=== PATIENT | female | born 1975 | race American Indian/Alaskan Native ===

== ENCOUNTER 2018-02-03 12:49 | Emergency (ER) | payer MEDICAID ==
[2018-02-03 13:08] VITALS: BP 118/77
[2018-02-03] MEDS ORDERED: ASPIRIN PO ONE (13:08)
[2018-02-03 13:58] LABS: Basophils % (Auto) 0.4 % (0.0-1.8); Eosinophils # (Auto) 0.1 K/mm3 (0.0-0.4); Eosinophils % (Auto) 0.8 % (0.0-4.3); Hematocrit 42.6 % (30.3-42.9); Lymphocytes # (Auto) 3.9 K/mm3 (1.2-5.4); Lymphocytes % (Auto) 42.1 % (13.4-35.0); Mean Corpuscular HGB Conc 35 % (30-34); Mean Corpuscular Hemoglobin 33 pg (28-32); Mean Corpuscular Volume 94 fl (79-97); Monocytes # (Auto) 0.9 K/mm3 (0.0-0.8); Monocytes % (Auto) 9.9 % (0.0-7.3); Platelet Count 309 K/mm3 (140-440); Red Blood Count 4.51 M/mm3 (3.65-5.03); Red Cell Distribution Width 13.9 % (13.2-15.2)
[2018-02-03 14:37] LABS: BUN/Creatinine Ratio 10; Blood Urea Nitrogen 7 mg/dL (7-17); Calcium 9.9 mg/dL (8.4-10.2); Hemolysis Index 70
--- NOTE | 2018-02-03 14:59 | Emergency Department Report ---
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 Patient presented to the ER complaining of left-sided chest pain, pressure in nature associated with shortness of breath. Patient stated that she just came back from [facility] for 7 days. She denied any fever, nausea or vomiting. MD Complaint: chest pain -: days(s) Onset: during rest Pain Location: left chest Pain Radiation: none Severity: moderate Severity scale (0 -10): 5 Quality: tightness Consistency: intermittent - Related Data Home Medications Medication Instructions Recorded Confirmed Last Taken Chickweed 770 mg PO BID 01/31/14 02/06/14 02/04/14 06:30 770mg Cholecalciferol (Vitamin D3) 2,000 1000units PO DAILY 01/31/14 02/06/14 11:00 [D3-2000] 2000unit Gabapentin [Neurontin] 400 mg PO DAILY 01/31/14 02/06/14 02/04/14 22:30 400mg Magnesium 800 mg PO DAILY 01/31/14 02/06/14 02/01/14 22:00 800mg Naproxen Sodium [Aleve] 220 mg PO PRN PRN 01/31/14 02/06/14 02/01/14 22:30 220mg Tummeric 2,000 mg PO DAILY 01/31/14 02/06/14 02/01/14 09:00 2000mg Vitamin B Complex [B Complex] 1 tab PO DAILY 01/31/14 02/06/14 02/03/14 07:30 1tab Vitamin E 400 unit PO DAILY 01/31/14 02/06/14 02/01/14 09:00 400unit Previous Rx's Medication Instructions Recorded Last Taken Type HYDROcodone/ACETAMINOPHEN [Sheridan 1 each PO 4XD PRN #20 tablet 02/06/14 Unknown Rx 5/325 Tablet] Acetaminophen/Codeine 1 tab PO Q6H PRN #10 tab 07/09/14 Unknown Rx [Acetaminophen-Codeine #3 TAB] Azithromycin [Zithromax Z-JESUS] 250 mg PO DAILY #6 tablet 09/02/14 Unknown Rx Promethazine Dm [Phenergan Dm 5 ml PO Q6H PRN #120 09/02/14 Unknown Rx 6.25/15 mg 5 ml] oxyCODONE /ACETAMINOPHEN [Percocet 1 tab PO Q8H #12 tablet 09/02/14 Unknown Rx 5/325] Acetaminophen/Codeine 1 tab PO Q6H PRN #20 tab 09/26/14 Unknown Rx [Acetaminophen-Codeine #3 TAB] Ibuprofen [Motrin] 800 mg PO Q8H PRN #20 tablet 01/17/15 Unknown Rx traMADol [Ultram] 50 mg PO Q6HR PRN #20 tablet 01/17/15 Unknown Rx HYDROcodone/APAP 5-325 [Sheridan 1 each PO Q6HR PRN #10 tablet 05/10/15 Unknown Rx 5/325] Acetaminophen/Codeine [Tylenol #3] 1 tab PO Q6H PRN #20 tab 07/25/15 Unknown Rx Azithromycin [Zithromax Z-JESUS] 250 mg PO DAILY #5 tab 07/25/15 Unknown Rx Cyclobenzaprine [Flexeril] 10 mg PO TID PRN #30 tablet 07/25/15 Unknown Rx Fluticasone [Flonase] 1 spray NS QDAY #1 bottle 07/25/15 Unknown Rx Ibuprofen [Motrin 800 MG tab] 800 mg PO Q8HR PRN #30 tablet 07/25/15 Unknown Rx HYDROcodone/APAP 5-325 [Sheridan 1 each PO Q6HR PRN #20 tablet 07/28/15 Unknown Rx 5/325] Cyclobenzaprine [Flexeril] 10 mg PO TID PRN #14 tablet 02/03/18 Unknown Rx Naproxen [Naprosyn] 500 mg PO BID #14 tablet 02/03/18 Unknown Rx Allergies Allergy/AdvReac Type Severity Reaction Status Date / Time Penicillins Allergy Hives Verified 07/25/15 16:25 Heart Score - HEART Score History: Slightly suspicious EKG: Non-specific Age: < 45 Risk factors: No known risk factors Troponin: < normal limit HEART Score: 1 - Critical Actions Critical Actions: 0-3 pts:0.9-1.7%risk of adverse cardiac event.Candidate for discharge ED Review of Systems ROS: Stated complaint: CHEST PAIN Other details as noted in HPI Comment: All other systems reviewed and negative Constitutional: denies: chills, fever Respiratory: shortness of breath. denies: cough, orthopnea, SOB with exertion, SOB at rest, wheezing Cardiovascular: chest pain, palpitations. denies: dyspnea on exertion, orthopnea Gastrointestinal: denies: abdominal pain, nausea, vomiting, diarrhea, constipation, hematemesis, melena, hematochezia Genitourinary: denies: dysuria Musculoskeletal: denies: back pain Neurological: denies: headache, weakness, numbness, paresthesias, confusion ED Past Medical Hx - Past Medical History Previous Medical History?: Yes Additional medical history: NEUROPATHY. FIBROIDS - Surgical History Past Surgical History?: Yes Additional Surgical History: hernia repair in January 2014 - Social History Smoking Status: Never Smoker Substance Use Type: None - Medications Home Medications: Home Medications Medication Instructions Recorded Confirmed Last Taken Type Chickweed 770 mg PO BID 01/31/14 02/06/14 02/04/14 06:30 History 770mg Cholecalciferol (Vitamin D3) 2,000 1000units PO DAILY 01/31/14 02/06/14 11:00 History [D3-2000] 2000unit Gabapentin [Neurontin] 400 mg PO DAILY 01/31/14 02/06/14 02/04/14 22:30 History 400mg Magnesium 800 mg PO DAILY 01/31/14 02/06/14 02/01/14 22:00 History 800mg Naproxen Sodium [Aleve] 220 mg PO PRN PRN 01/31/14 02/06/14 02/01/14 22:30 History 220mg Tummeric 2,000 mg PO DAILY 01/31/14 02/06/14 02/01/14 09:00 History 2000mg Vitamin B Complex [B Complex] 1 tab PO DAILY 01/31/14 02/06/14 02/03/14 07:30 History 1tab Vitamin E 400 unit PO DAILY 01/31/14 02/06/14 02/01/14 09:00 History 400unit HYDROcodone/ACETAMINOPHEN [Sheridan 1 each PO 4XD PRN #20 tablet 02/06/14 Unknown Rx 5/325 Tablet] Acetaminophen/Codeine 1 tab PO Q6H PRN #10 tab 07/09/14 Unknown Rx [Acetaminophen-Codeine #3 TAB] Azithromycin [Zithromax Z-JESUS] 250 mg PO DAILY #6 tablet 09/02/14 Unknown Rx Promethazine Dm [Phenergan Dm 5 ml PO Q6H PRN #120 09/02/14 Unknown Rx 6.25/15 mg 5 ml] oxyCODONE /ACETAMINOPHEN [Percocet 1 tab PO Q8H #12 tablet 09/02/14 Unknown Rx 5/325] Acetaminophen/Codeine 1 tab PO Q6H PRN #20 tab 09/26/14 Unknown Rx [Acetaminophen-Codeine #3 TAB] Ibuprofen [Motrin] 800 mg PO Q8H PRN #20 tablet 01/17/15 Unknown Rx traMADol [Ultram] 50 mg PO Q6HR PRN #20 tablet 01/17/15 Unknown Rx HYDROcodone/APAP 5-325 [Sheridan 1 each PO Q6HR PRN #10 tablet 05/10/15 Unknown Rx 5/325] Acetaminophen/Codeine [Tylenol #3] 1 tab PO Q6H PRN #20 tab 07/25/15 Unknown Rx Azithromycin [Zithromax Z-JESUS] 250 mg PO DAILY #5 tab 07/25/15 Unknown Rx Cyclobenzaprine [Flexeril] 10 mg PO TID PRN #30 tablet 07/25/15 Unknown Rx Fluticasone [Flonase] 1 spray NS QDAY #1 bottle 07/25/15 Unknown Rx Ibuprofen [Motrin 800 MG tab] 800 mg PO Q8HR PRN #30 tablet 07/25/15 Unknown Rx HYDROcodone/APAP 5-325 [Sheridan 1 each PO Q6HR PRN #20 tablet 07/28/15 Unknown Rx 5/325] Cyclobenzaprine [Flexeril] 10 mg PO TID PRN #14 tablet 02/03/18 Unknown Rx Naproxen [Naprosyn] 500 mg PO BID #14 tablet 02/03/18 Unknown Rx ED Physical Exam - General Limitations: No Limitations General appearance: alert, in no apparent distress - Head Head exam: Present: atraumatic, normocephalic, normal inspection - Eye Eye exam: Present: normal appearance - ENT ENT exam: Present: normal exam, normal orophraynx, mucous membranes moist - Neck Neck exam: Present: normal inspection, full ROM. Absent: tenderness, meningismus, lymphadenopathy - Respiratory Respiratory exam: Present: normal lung sounds bilaterally. Absent: respiratory distress, wheezes, rales, rhonchi, stridor, chest wall tenderness, accessory muscle use, decreased breath sounds, prolonged expiratory - Cardiovascular Cardiovascular Exam: Present: tachycardia. Absent: systolic murmur, diastolic murmur - GI/Abdominal GI/Abdominal exam: Present: soft, normal bowel sounds. Absent: distended, tenderness, guarding, rebound, rigid, organomegaly, mass, bruit, pulsatile mass - Extremities Exam Extremities exam: Present: normal inspection, full ROM, normal capillary refill , pedal edema. Absent: tenderness, joint swelling, calf tenderness - Back Exam Back exam: Present: normal inspection, full ROM. Absent: CVA tenderness (L) - Neurological Exam Neurological exam: Present: alert, oriented X3, CN II-XII intact, normal gait, reflexes normal - Skin Skin exam: Present: warm, intact, normal color ED Course Vital Signs 02/03/18 02/03/18 13:05 17:31 Temperature 98.5 F Pulse Rate 127 H Respiratory 16 18 Rate Blood Pressure 118/77 O2 Sat by Pulse 96 100 Oximetry ED Medical Decision Making - Lab Data Result diagrams: 02/03/18 13:46 02/03/18 13:46 - EKG Data -: EKG Interpreted by Dc EKG shows normal: sinus rhythm Rate: tachycardia - EKG Data Interpretation: no acute changes - Radiology Data Radiology results: report reviewed Referring Physician: YAIMA REEDER Patient Name: HUNTER FISHER Date of : 1975 Sex: Female Report Date: 2018-02-03 Report Status: Finalized Findings [facility] [address] [place] [address] XRay Report Signed Patient: HUNTER FISHER MR#: [id number] : 1975 Acct:[id number] Age/Sex: 43 / F ADM Date: 02/03/18 Loc: ED Attending Dr: Ordering Physician: YAIMA REEDER Date of Service: 02/03/18 Procedure(s): XR chest 1V ap Accession Number(s): [id number] cc: YAIMA REEDER Fluoro Time In Minutes: FINAL REPORT EXAM: XR CHEST 1V AP HISTORY: chest pain TECHNIQUE: One view examination of the chest PRIORS: Thoracic spine radiographs 07/25/2015 FINDINGS: Again noted is slight thoracic spine curvature with mid left apex. There is no visible pulmonary consolidation, pleural effusion, or pneumothorax. Cardiac silhouette size is normal without vascular congestion. No visible acute displaced fracture in the regional skeleton. IMPRESSION: No evidence of acute cardiopulmonary disease in the visualized chest Transcribed By: BAL Dictated By: TRA GRIGSBY MD Electronically Authenticated By: TRA GRIGSBY MD Signed Date/Time: 02/03/181752 DD/ 52 TD/TT: 02/03/181752 - Medical Decision Making Patient stated that she is feeling much better. She also told me that she's been swimming a lot using the life vest. I believe this is most likely musculoskeletal pain. Critical care attestation.: If time is entered above; I have spent that time in minutes in the direct care of this critically ill patient, excluding procedure time. ED Disposition Clinical Impression: Chest pain Disposition: - TO HOME OR SELFCARE Is pt being admited?: No Condition: Stable Instructions: Chest Pain (ED) Prescriptions: Cyclobenzaprine [Flexeril] 10 mg PO TID PRN #14 tablet PRN Reason: Muscle Spasm Naproxen [Naprosyn] 500 mg PO BID #14 tablet Referrals: PRIMARY CARE, [Primary Care Provider] - 3-5 Days
[2018-02-03 15:39] LABS: INR 0.95 (0.87-1.13)
[2018-02-03 15:40] LABS: Partial Thromboplastin Time 29.2 Sec. (24.2-36.6)
--- NOTE | 2018-02-03 17:58 | XRay Report ---
FINAL REPORT EXAM: XR CHEST 1V AP HISTORY: chest pain TECHNIQUE: One view examination of the chest PRIORS: Thoracic spine radiographs 07/25/2015 FINDINGS: Again noted is slight thoracic spine curvature with mid left apex. There is no visible pulmonary consolidation, pleural effusion, or pneumothorax. Cardiac silhouette size is normal without vascular congestion. No visible acute displaced fracture in the regional skeleton. IMPRESSION: No evidence of acute cardiopulmonary disease in the visualized chest
--- NOTE | 2018-02-03 19:07 | Cat Scan Report ---
FINAL REPORT EXAM: CT ANGIO CHEST HISTORY: CHEST PAIN WITH SYNCOPE TECHNIQUE: CT examination of the chest with IV contrast CT angiographic 2D and thick slab 3D image post-processing PRIORS: One-view chest 02/03/2018 FINDINGS: Normal cardiac size without pericardial effusion. Intact normal caliber thoracic aorta. Normal-appearing esophagus. No hilar mass or mediastinal adenopathy. The visualized pulmonary arteries are diffusely patent bilaterally. There is no filling defect to suggest PE. Nonspecific small size of the spleen. This may be developmental variation or secondary to atrophy. No acute fracture or significant osseous lesion. No pneumothorax, pleural effusion, or focal pulmonary consolidation. Small fat containing Bochdalek's hernia in the posterior left CP angle. No lung mass or nodule. IMPRESSION: Nonspecific small splenic size may be developmental variation or secondary to atrophy Small fat containing Bochdalek's hernia in posterior left CP angle. No CT evidence of PE
== END 2018-02-03 19:01 | disposition home or self-care (01) ==
LOC: ED 12:49
DX: R07.9 Chest pain, unspecified (principal); R06.02 Shortness of breath; G62.9 Polyneuropathy, unspecified; Z88.0 Allergy status to penicillin; Z79.899 Other long term (current) drug therapy
CPT/HCPCS: 36415; 71045; 71275; 80048; 83880; 84484; 84703; 85025; 85379; 85610; 85730; 93005; 93010; 99285; Q9967

== ENCOUNTER 2022-04-16 20:07 | Emergency (ER) | payer MEDICAID ==
[2022-04-16 20:24] VITALS: BP 132/44
--- NOTE | 2022-04-16 21:04 | XRay Report ---
CHEST 2 VIEWS INDICATION / CLINICAL INFORMATION: CHEST PAIN. COMPARISON: 02/03/2018 FINDINGS: SUPPORT DEVICES: None. HEART / MEDIASTINUM: No significant abnormality. LUNGS / PLEURA: No significant pulmonary or pleural abnormality. No pneumothorax. ADDITIONAL FINDINGS: No significant additional findings. IMPRESSION: 1. No acute findings. Signer Name: Navarro Tam MD Signed: 04/16/2022 9:00 PM Workstation Name: [id number]
[2022-04-16 22:42] LABS: Basophils # (Auto) 0.1 K/mm3 (0.0-0.1); Basophils % (Auto) 0.6 % (0.0-1.8); Eosinophils # (Auto) 0.1 K/mm3 (0.0-0.4); Eosinophils % (Auto) 1.3 % (0.0-4.3); Hematocrit 40.7 % (30.3-42.9); Hemoglobin 13.4 gm/dl (10.1-14.3); Lymphocytes % (Auto) 48.1 % (13.4-35.0); Mean Corpuscular HGB Conc 33 % (30-34); Mean Corpuscular Volume 92 fl (79-97); Monocytes # (Auto) 0.7 K/mm3 (0.0-0.8); Monocytes % (Auto) 8.8 % (0.0-7.3); Platelet Count 268 K/mm3 (140-440); Red Blood Count 4.44 M/mm3 (3.65-5.03); Red Cell Distribution Width 14.2 % (13.2-15.2)
[2022-04-16 23:07] LABS: Alanine Aminotransferase 9 units/L (7-56); Albumin 4.5 g/dL (3.9-5); BUN/Creatinine Ratio 14; Blood Urea Nitrogen 11 mg/dL (7-17); Calcium 9.9 mg/dL (8.4-10.2); Hemolysis Index 8
--- NOTE | 2022-04-16 23:07 | Cat Scan Report ---
CT HEAD WITHOUT CONTRAST INDICATION / CLINICAL INFORMATION: NEURO. Headache and dizziness. Reported prior surgery for Chiari m alformation. TECHNIQUE: All CT scans at this location are performed using CT dose reduction for ALARA by means of automated exposure control. COMPARISON: 07/28/2015 FINDINGS: CEREBRAL/CEREBELLAR PARENCHYMA: The cerebral and cerebellar hemispheres are normal for age. No CT gus dence for an acute or subacute territorial infarct. Surgical changes from suboccipital craniectomy fo r Chiari I malformation decompression. HEMORRHAGE: No acute intra-axial hemorrhage or extra-axial fluid collection. MASS: No mass or mass effect. VENTRICULAR SYSTEM: Normal in size and morphology for the patient's age. ORBITS: No acute process. SOFT TISSUES/SKULL: No scalp hematoma or skull fracture. Suboccipital craniectomy and also likely pos terior C1 arch decompression. PARANASAL SINUSES/MASTOID AIR CELLS: Normal as visualized. IMPRESSION: 1. No acute intracranial process. 2. Surgical changes from suboccipital craniectomy for Chiari I malformation decompression. Signer Name: Rob White MD Signed: 04/16/2022 11:03 PM Workstation Name: [email or web address]
--- NOTE | 2022-04-17 11:38 | Electrocardiograph Report ---
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
== END 2022-04-16 21:00 | disposition left against medical advice (07) ==
LOC: ED 20:07
DX: R07.9 Chest pain, unspecified (principal); Z53.21 Procedure and treatment not carried out due to patient leaving prior to being seen by health care provider; R42 Dizziness and giddiness; R11.0 Nausea
CPT/HCPCS: 36415; 70450; 71046; 80053; 84484; 85025; 93005